=== PATIENT | male | born 1965 | race Two or more races ===

== ENCOUNTER 2017-01-27 10:08 | Day surgery (SDC) | payer BC, OTHER ==
[~2017-01-27] VITALS: Ht 175.3 cm; Wt 99.8 kg
[2017-01-27] VITALS (10 sets, daily range): BP systolic 124–145; BP diastolic 77–89; PULSE 78–96; RESP 16–20; Ht 175.3 cm; Wt 99.8 kg
[~2017-01-27 10:08] MED LIST: GLYCOPYRROLATE 1 MG INJ ONE; NEOSTIGMINE 3 MG/3 ML SYRINGE ONE; ROCURONIUM 50 MG INJ ONE
[2017-01-27] MEDS ORDERED: CEFAZOLIN 2 GM/50 ML (PMX) 50 ML IVPB ONE (10:30)
[2017-01-27] MEDS ORDERED: LIDOCAINE 2% (SDV) 5 ML INJ ONE (11:51)
[2017-01-27] MEDS ORDERED: PROPOFOL 40 ML ONE (11:51)
[2017-01-27] MEDS ORDERED: MIDAZOLAM 1 MG/ML 2 ML INJ ONE (11:51)
[2017-01-27] MEDS ORDERED: ONDANSETRON 4 MG INJ ONE (11:52)
[2017-01-27] MEDS ORDERED: DEXAMETHASONE 4 MG/ML 1 ML INJ ONE (11:52)
[2017-01-27] MEDS ORDERED: CEFAZOLIN 1 GM INJ ONE (11:52)
--- NOTE | 2017-01-27 12:22 | HPN ---
Date/Time of Note Date/Time of Note DATE: 01/27/17 TIME: 12:22 Interval H&P Admission Note Pt. seen H&P reviewed: No system changes MARILYNN REYNOLDS MD January 27, 2017 12:22
[2017-01-27] MEDS ORDERED: MEPERIDINE 25 MG INJ IV PRN (13:30)
[2017-01-27] MEDS ORDERED: METOCLOPRAMIDE 10 MG INJ IV PRN (13:30)
[2017-01-27] MEDS ORDERED: OXYCODONE/ACETAMINOPHEN (5/325) TAB PO PRN ×2 (13:30)
[2017-01-27] MEDS ORDERED: EPHEDrine SULFATE 50 MG/5 ML SYG IV PRN (13:30)
[2017-01-27] MEDS ORDERED: ONDANSETRON 4 MG INJ IV PRN (13:30)
[2017-01-27] MEDS ORDERED: morphine (1 MG/ML) 10ML SYRINGE IV PRN ×3 (13:30)
[2017-01-27] MEDS ORDERED: FENTAnyl 50 MCG/ML VIAL IV PRN ×3 (13:30)
[2017-01-27] MEDS ORDERED: LABETALOL HCL 20MG INJ IV PRN (13:30)
[2017-01-27] MEDS ORDERED: ALBUTEROL 0.083% (NEB) 2.5 MG/3 ML AMP HHN ONE (13:30)
[2017-01-27] MEDS ORDERED: HYDROCODONE/APAP (5/325) TAB PO PRN (14:30)
--- NOTE | 2017-01-27 15:14 | OPR ---
DATE OF OPERATION: 01/27/2017 PREOPERATIVE DIAGNOSIS: Bladder tumor. POSTOPERATIVE DIAGNOSIS: Bladder tumor. OPERATION PERFORMED: Transurethral resection of multiple bladder tumors. OTHER FINDINGS: Patient did have a large bladder tumor, left side of the bladder near the bladder n lan lateral to the left ureteral orifice. He did have another tumor on the right side proximal and lateral to the right ureteral orifice and another one toward the base of the bladder that was just very small and just was fulgurated. The ureteral orifices were both free and away from the tumors. TECHNIQUE: Patient was brought to the operating room and general anesthesia was induced. The patie nt was positioned in the lithotomy position. The genital area was prepped and draped in the usual s terile manner. Patient was given 2 grams of Ancef IV at the start of the procedure. Then, the #22 [place] cystoscope was introduced under direct vision through the penile urethra all the way to the b ladder. Once in the bladder, the above findings were noted. Then, the scope was removed. The ure thra was dilated with [place] dilators up to 30 [place]. Then, #26 [place] resectoscope sheath was introduced under direct vision through the penile urethra all the way to the bladder. Once in the b ladder, the resectoscope was used and the tumor was resected first superficial and then went to deep , removing the base of the bladder tumor and hopefully I got a good piece of muscle in it. The edges and the bases of the bladder tumor were then electrocoagulated. Good hemostasis was obtained. The n, I resected the tumor on the right side of the bladder in a similar manner and also fulgurated the base and edges and the tumor around the base of the bladder was electrocoagulated. At the end of t he procedure, the hemostasis was good. I inserted an 18 [place] Porras catheter and hand irrigated it with sterile water and it irrigated well, and there was no blood or blood clots. I kept the Porras catheter and connected to a drainage bag and the patient was transferred to recovery room in stable and satisfactory condition. Dictated By: MARILYNN WHITE/DWAIN Conf#: [id number] DID#: [id number]
== END 2017-01-27 16:22 | disposition home or self-care (01) ==
LOC: SDS 10:08
PROVIDERS: ATTEND Urology
DX: C67.9 Malignant neoplasm of bladder, unspecified (principal); F17.200 Nicotine dependence, unspecified, uncomplicated; E66.9 Obesity, unspecified; Z68.32 Body mass index [BMI] 32.0-32.9, adult
CPT/HCPCS: 52235; 88305; J0690; J1100; J2250; J2405; J2710; J3010

== ENCOUNTER 2018-07-06 10:55 | Day surgery (SDC) | END 2018-07-06 15:06 | disposition home or self-care (01) ==